=== PATIENT | male | born 1970 | race Caucasian/White ===

== ENCOUNTER 2020-10-20 13:00 | Inpatient (IN) | payer OTHER, SELFPAY ==
[~2020-10-20] VITALS: Ht 175.3 cm; Wt 73.0 kg
[2020-11-15] MEDS ORDERED: CEFAZOLIN 2 GM IVPB PREMIX 50 ML IV ONE (07:00)
[2020-11-15] MEDS ORDERED: LIP40 PO (10:16)
[2020-11-15] MEDS ORDERED: EFF37 PO (10:16)
[2020-11-15] MEDS ORDERED: QUET300T2 PO (10:16)
[2020-11-15] MEDS ORDERED: LISI-209 PO (10:16)
[2020-11-15] MEDS ORDERED: ASPI-1393 PO (10:16)
[2020-11-15] MEDS ORDERED: BUPIVACAINE LIPOSOME/PF 266 MG/20 ML VIAL INFIL ONE (11:13)
[2020-11-15] MEDS ORDERED: POLYMYXIN 500,000/BACIT.10,000 UNITS in NS IRR 1 L IR ONE (11:13)
[2020-11-15] MEDS ORDERED: METOCLOPRAMIDE HCL 10 MG/2 ML VIAL IVP ONE (11:35)
[2020-11-15] MEDS ORDERED: BUPIVACAINE /DEX PF 0.75% SPINAL 2 ML AMP INJ ONE (11:35)
[2020-11-15] MEDS ORDERED: fentaNYL CITRATE/PF 100 MCG/2 ML AMP IVP ONE (11:35)
[2020-11-15] MEDS ORDERED: ONDANSETRON HCL 4 MG/2 ML VIAL IVP ONE (11:35)
[2020-11-15] MEDS ORDERED: PROPOFOL 200MG/ 20ML VIAL (DIPRIVAN) IV ONE (11:35)
[2020-11-15] MEDS ORDERED: LR 1,000 ML IV.SOLN IV ONE (11:35)
[2020-11-15] MEDS ORDERED: SEVOFLURANE 15 MIN GAS INH ONE (11:35)
[2020-11-15] MEDS ORDERED: SUCCINYLCHOLINE CHLORIDE 20 MG/ML(QUELICIN) IVP ONE (11:35)
[2020-11-15] MEDS ORDERED: LIDOCAINE 1% 10 MG/ML, 20 ML MDV INJ ONE (11:35)
[2020-11-15] MEDS ORDERED: MORPHINE SULFATE 10MG/10ML PF AMP EP ONE (11:35)
[2020-11-15] MEDS ORDERED: NEOSTIGMINE METHYLSULFATE 1 MG/ML, 10 ML VIAL IVP ONE (11:35)
[2020-11-15] MEDS ORDERED: GLYCOPYRROLATE 0.2 MG/ML VIAL IJ ONE (11:35)
[2020-11-15] MEDS ORDERED: ROCURONIUM BROMIDE 10 MG/ML (ZEMURON) IV ONE (11:35)
[2020-11-15] MEDS ORDERED: NORMAL SALINE 10 ML VIAL IVP ONE (11:35)
[2020-11-15] MEDS ORDERED: fentaNYL CITRATE/PF 100 MCG/2 ML AMP IVP PRN (13:15)
[2020-11-15] MEDS ORDERED: LR 1,000 ML IV SCH (13:15)
[2020-11-15] MEDS ORDERED: NALOXONE HCL 0.4 MG/ML AMP (NARCAN) IVP PRN ×5 (13:45)
[2020-11-15] MEDS ORDERED: ONDANSETRON HCL 4 MG/2 ML VIAL IVP PRN ×3 (13:45→14:45)
[2020-11-15] MEDS ORDERED: MORPHINE SULFATE 10MG/10ML PF AMP SP SCH (13:45)
[2020-11-15] MEDS ORDERED: DIPHENHYDRAMINE INJ 50 MG/ML VIAL IVP PRN ×2 (13:45)
[2020-11-15] MEDS ORDERED: DIPHENHYDRAMINE HCL 50 MG CAPSULE PO PRN (13:45)
[2020-11-15] MEDS ORDERED: ACETAMINOPHEN 325 MG TABLET PO PRN ×2 (14:45)
[2020-11-15] MEDS ORDERED: ZOLPIDEM TARTRATE 5 MG TABLET PO PRN (14:45)
[2020-11-15] MEDS ORDERED: CEFAZOLIN 1 GM IVPB PREMIX 50 ML IV SCH (15:00)
[2020-11-15 16:30] VITALS: BP_SYST 117
[2020-11-15 17:26] VITALS: BP_SYST 117
[2020-11-15] MEDS: CEFAZOLIN 1 GM IVPB PREMIX 50 ML IV SCH (17:41)
[2020-11-15] MEDS: LR 1,000 ML IV SCH (17:41)
[2020-11-15 20:00] VITALS: BP_SYST 130
[2020-11-15] MEDS ORDERED: DEXTROSE 50% JECT 50 ML DISP.SYRIN IVP PRN (20:15)
[2020-11-15] MEDS ORDERED: GLUCOSE (DEXTROSE) ORAL GEL -Adults PO PRN (20:15)
[2020-11-15] MEDS ORDERED: D5W 1,000 ML IV PRN (20:15)
[2020-11-15] MEDS: INSULIN LISPRO SLIDING SCALE 100 UNITS/ML VIAL (humaLOG) SUBCUT PRN (20:16)
[2020-11-15] MEDS: SENNOSIDES 8.6 MG TABLET PO SCH (21:00)
[2020-11-15] MEDS: DOCUSATE SODIUM 100 MG CAPSULE PO SCH (21:00)
[2020-11-15] MEDS ORDERED: QUEtiapine FUMARATE 100 MG TABLET PO SCH (21:45)
[2020-11-15] MEDS ORDERED: QUEtiapine FUMARATE 100 MG TABLET PO ONE (22:00)
[2020-11-16] MEDS: CEFAZOLIN 1 GM IVPB PREMIX 50 ML IV SCH (00:16)
[2020-11-16 01:00] VITALS: BP_SYST 138
[2020-11-16] MEDS: OXYCODONE/ACETAMINOPHEN *10*mg/325 mg TABLET PO PRN ×5 (02:29→21:03)
[2020-11-16 06:37] LABS: BASOPHILS % (AUTO) 0.4 % (0.0-2.0); EOSINOPHILS % (AUTO) 0.2 % (0.0-4.0); HEMATOCRIT 35.9 % (36-54); HEMOGLOBIN 12.1 g/dL (14.0-18.0); LYMPHOCYTES # (AUTO) 0.9 K/uL (1.0-5.5); LYMPHOCYTES % (AUTO) 17.7 % (20.5-51.5); MEAN CORPUSCULAR HEMOGLOBIN 32 pg (27-31); MEAN CORPUSCULAR HGB CONC 34 % (32-36); MEAN CORPUSCULAR VOLUME 93 fL (79.0-98.0); MONOCYTES # (AUTO) 0.5 K/uL (0.0-1.0); MONOCYTES % (AUTO) 10.2 % (1.7-9.3); NEUTROPHILS # (AUTO) 3.7 K/uL (1.8-7.7); NEUTROPHILS % (AUTO) 71.5 % (40.0-70.0); PLATELET COUNT (AUTO) 81 K/uL (130-430); RED BLOOD CELL COUNT(AUTO) 3.85 MIL/uL (4.2-6.2); RED CELL DISTRIBUTION WIDTH 15.4 % (9.0-15.0); WHITE BLOOD COUNT (AUTO) 5.2 K/uL (4.8-10.8)
[2020-11-16] MEDS: INSULIN LISPRO SLIDING SCALE 100 UNITS/ML VIAL (humaLOG) SUBCUT PRN (06:39)
[2020-11-16] MEDS: LR 1,000 ML IV SCH ×2 (06:41→17:13)
[2020-11-16 06:53] LABS: CALCIUM 8.4 mg/dL (8.4-11.0); CREATININE 1.06 mg/dL (0.55-1.30); POTASSIUM 5.2 mmol/L (3.5-5.1)
[2020-11-16] MEDS: Effexor XR 37.5 MG PO SCH (08:26)
[2020-11-16] MEDS: DOCUSATE SODIUM 100 MG CAPSULE PO SCH ×2 (08:27→20:43)
[2020-11-16] MEDS ORDERED: QUEtiapine FUMARATE 100 MG TABLET PO SCH ×2 (09:00→21:00)
[2020-11-16 13:22] VITALS: BP_SYST 119
[2020-11-16 16:48] VITALS: BP_SYST 132
[2020-11-16] MEDS: SENNOSIDES 8.6 MG TABLET PO SCH (20:44)
[2020-11-16 20:50] VITALS: BP_SYST 141
[2020-11-17 01:13] VITALS: BP_SYST 121
[2020-11-17] MEDS: OXYCODONE/ACETAMINOPHEN *10*mg/325 mg TABLET PO PRN ×5 (02:08→17:23)
[2020-11-17] MEDS: LR 1,000 ML IV SCH (06:12)
[2020-11-17 08:00] VITALS: BP_SYST 132
[2020-11-17] MEDS ORDERED: lisinopriL 5 MG TABLET PO SCH (09:00)
[2020-11-17] MEDS: DOCUSATE SODIUM 100 MG CAPSULE PO SCH (09:40)
[2020-11-17] MEDS: Effexor XR 37.5 MG PO SCH (09:40)
[2020-11-17] MEDS ORDERED: PERC10 PO (11:55)
[2020-11-17 12:39] VITALS: BP_SYST 132
[2020-11-17 15:03] VITALS: BP_SYST 132
[2020-11-17 16:00] VITALS: BP_SYST 135
== END 2020-11-17 18:00 | disposition home or self-care (01) | DRG 352 ==
LOC: SMU 11-15 08:39 → EDSTATUS 11-15 10:00 → SMU 11-15 16:04
PROVIDERS: ADMIT Surgery; ATTEND Surgery
PROC: 0WUF0JZ Supplement Abdominal Wall with Synthetic Substitute, Open Approach (ICD-10-PCS; principal; 2020-11-15)
PROC: 0YU50JZ Supplement Right Inguinal Region with Synthetic Substitute, Open Approach (ICD-10-PCS; 2020-11-15)
DX: K40.90 Unilateral inguinal hernia, without obstruction or gangrene, not specified as recurrent (principal); K43.9 Ventral hernia without obstruction or gangrene; K43.2 Incisional hernia without obstruction or gangrene; Z20.822 Contact with and (suspected) exposure to COVID-19
CPT/HCPCS: 36415; 80048; 82962; 85025; 87081; 88302; 94010; 97116-GP; 97530-GP; C9290; J0330; J0690; J2001; J2274; J2405; J2704; J2710; J2765; J3010; J3490; J7120; Q0163; U0003